=== PATIENT | male | born 1935 | race Caucasian/White ===

== ENCOUNTER 2020-02-05 04:39 | Observation (INO) | payer MEDICARE, OTHER ==
[~2020-02-05] VITALS: Ht 175.3 cm; Wt 99.0 kg
--- NOTE | 2020-02-05 05:17 | NUR ---
PT CAME INTO ED TODAY DUE TO ABDOMINAL PAIN. STATES HIS RIGHT UPPER QUADRANT IS HURTING FOR THE PAST WEEK, STATES HE CAME IN TODAY BECAUSE HE COULDNT SLEEP FROM THE PAIN. DENIES BURNING ON URINATION. STILL PASSING GAS AND HAVING BOWEL MOVEMENTS. PT RESTING ON GURNEY, SON AT BEDSIDE, GIVEN WARM BLANKETS FOR COMFORT. PLACED ON SPO2/BP MONITORING. UA SENT TO LAB, [facility].
[2020-02-05] MEDS ORDERED: MORPHINE SULFATE 4 MG/ML, 1ML IVPush PRN ×2 (05:30→07:30)
[2020-02-05] MEDS ORDERED: SODIUM CHLORIDE FLUSH 10ML SYR IVF ONE (05:30)
[2020-02-05] MEDS ORDERED: ONDANSETRON 2MG/ML, 2ML IVPush ONE (05:30)
[2020-02-05] MEDS ORDERED: ONDANSETRON 2MG/ML, 2ML ONE ×2 (05:41→13:07)
[2020-02-05] MEDS ORDERED: MORPHINE SULFATE 4 MG/ML, 1ML ONE (05:41)
[2020-02-05 05:50] LABS: MICROSCOPIC INDICATED
--- NOTE | 2020-02-05 06:17 | NUR ---
PT MEDICATED PER MAR FOR PAIN, NAD, VSS, WAITING FOR TEST RESULTS. WCTM. NO CHANGE IN CONDITION
[2020-02-05 06:37] LABS: MEAN CORPUSCULAR HGB CONC 33.4 g/dL (33.2-36.2); MEAN CORPUSCULAR VOLUME 89.8 fL (81-97); MEAN PLATELET VOLUME 8.4 fL (7.4-10.4); PLATELET COUNT 394 x10^3/uL (130-400); RED BLOOD COUNT 4.87 x10^6/uL (4.38-5.82); RED CELL DISTRIBUTION WIDTH 13.3 % (9.4-14.8)
[2020-02-05 06:52] LABS: ALBUMIN 2.8 g/dL (3.4-5.0); ANION GAP 6 mmol/L (5-15); CALCIUM 8.5 mg/dL (8.5-10.1); CHLORIDE 108 mmol/L (98-107)
--- NOTE | 2020-02-05 06:55 | NUR ---
REPORT TO RAMSES SLADE, PT CARE TRANSFERRED AT THIS TIME.
[2020-02-05 06:56] LABS: ALANINE AMINOTRANSFERASE 57 U/L (12-78); ALKALINE PHOSPHATASE 94 U/L (45-117); BILIRUBIN,TOTAL 0.9 mg/dL (0.2-1.0); CREATININE 0.63 mg/dL (0.7-1.3); TOTAL PROTEIN 7.1 g/dL (6.4-8.2)
[2020-02-05] MEDS ORDERED: D5%-0.45NACL+KCL 20MEQ 1,000 ML IV ONE (07:14)
--- NOTE | 2020-02-05 07:28 | NUR ---
PT IN HOSPITAL GOWN. ALL CLOTHING REMOVED IN PREP FOR OR. PT SON LEFT TO GET PT HOME MEDS SO MED REC CAN BE COMPLETED. PT RESTING CALMLY, SITTING UP IN BED. NO STATED NEEDS AT THIS TIME. WILL CONTINUE TO MONITOR.
[2020-02-05 07:29] LABS: BASOPHILS # (AUTO) 0.03 x10^3/uL (0-0.1); BASOPHILS % (AUTO) 0 % (0-1); EOSINOPHILS # (AUTO) 0.37 x10^3/uL (0-0.4); EOSINOPHILS % (AUTO) 3 % (1-7); LYMPHOCYTES # (AUTO) 1.14 x10^3/uL (1-3.4); LYMPHOCYTES % (AUTO) 9 % (22-44); MD SCAN; MONOCYTES # (AUTO) 1.74 x10^3/uL (0.2-0.8); MONOCYTES % (AUTO) 13 % (2-9); NEUTROPHILS # (AUTO) 9.97 x10^3/uL (1.8-6.8); NEUTROPHILS % (AUTO) 75 % (42-75)
[2020-02-05] MEDS ORDERED: ONDANSETRON 2MG/ML, 2ML IVPush PRN ×3 (07:30→16:00)
[2020-02-05] MEDS ORDERED: SODIUM CHLORIDE FLUSH 10ML SYR IVF PRN (07:30)
[2020-02-05] MEDS ORDERED: CEFOTETAN PMX 2GM/50ML 50 ML IV ONE (07:30)
[2020-02-05] MEDS ORDERED: LISI-170 PO (07:57)
[2020-02-05] MEDS ORDERED: ATOR40TA PO (07:57)
[2020-02-05] MEDS ORDERED: METF500T17 PO (07:57)
--- NOTE | 2020-02-05 08:11 | NUR ---
PT SON ABLE TO BRING IN HOME MED FOR PT. MEDS ENTERED FOR MED REC. PT RESTING CALMLY IN BED. CALL LIGHT WITHIN REACH. WILL CONTINUE TO MONITOR.
--- NOTE | 2020-02-05 08:51 | NUR ---
REPORT GIVEN TO CANELO SLADE
[2020-02-05 09:36] VITALS: BP 133/75
[2020-02-05] MEDS ORDERED: PROPOFOL 50 ML ONE (12:07)
[2020-02-05] MEDS ORDERED: FENTANYL PF 250 MCG/5ML ONE (12:07)
[2020-02-05] MEDS ORDERED: BUPIVACAINE/PF-EPI 0.5% 1:200K ONE (12:54)
[2020-02-05] MEDS ORDERED: SUCCINYLCHOLINE 20 MG/ML, 10ML ONE (13:07)
[2020-02-05] MEDS ORDERED: ROCURONIUM 10 MG/ML,10ML ONE (13:07)
[2020-02-05] MEDS ORDERED: DIAZEPAM 5 MG/ML, 2ML IVPush PRN (13:30)
[2020-02-05] MEDS ORDERED: EPHEDRINE 50 MG/ML, 1ML IM PRN (13:30)
[2020-02-05] MEDS ORDERED: PROMETHAZINE 25 MG/ML, 1ML IVPush PRN (13:30)
[2020-02-05] MEDS ORDERED: LABETALOL 5MG/ML, 20ML IV PRN (13:30)
[2020-02-05] MEDS ORDERED: EPHEDRINE 50 MG/ML, 1ML IVPush PRN (13:30)
[2020-02-05] MEDS ORDERED: HYDROmorphone 1 MG/ML, 1ML INJ IVPush PRN (13:30)
[2020-02-05] MEDS ORDERED: FENTANYL PF 100 MCG/2ML IV PRN (13:30)
[2020-02-05] MEDS ORDERED: OXYcodone 5 MG/5 ML ORAL.SOL UDC PO PRN (13:30)
[2020-02-05] MEDS ORDERED: DIPHENHYDRAMINE 50 MG/ML, 1ML IVPush PRN (13:30)
[2020-02-05] MEDS ORDERED: BUPIVACAINE/PF-EPI 0.5% 1:200K IM ONE (13:34)
[2020-02-05] MEDS ORDERED: OXYcodone 5 MG/5 ML ORAL.SOL UDC ONE (14:39)
[2020-02-05] MEDS ORDERED: FENTANYL PF 100 MCG/2ML ONE (14:39)
[2020-02-05] MEDS ORDERED: ALBUTEROL HFA 90 MCG/SPRAY ONE (14:47)
[2020-02-05] MEDS ORDERED: ALBUTEROL HFA 90 MCG/SPRAY INH PRN (15:00)
[2020-02-05 15:37] VITALS: BP 147/69
[2020-02-05] MEDS: INSULIN REGULAR, HUMAN 100 UNITS/ML, 3ML MEDIUM DOSE SS SQ-INSULIN SCH ×2 (16:00→21:12)
[2020-02-05] MEDS: IBUPROFEN 600 MG TABLET PO SCH ×2 (16:00→21:12)
[2020-02-05] MEDS: ACETAMINOPHEN 325 MG TABLET PO SCH (19:25)
[2020-02-05 19:31] VITALS: BP 127/71
[2020-02-05 23:29] VITALS: BP 109/69
[2020-02-06] MEDS: IBUPROFEN 600 MG TABLET PO SCH ×2 (02:48→10:11)
[2020-02-06] MEDS: ACETAMINOPHEN 325 MG TABLET PO SCH ×4 (02:49→14:23)
[2020-02-06 02:56] VITALS: BP 100/59
[2020-02-06] MEDS: INSULIN REGULAR, HUMAN 100 UNITS/ML, 3ML MEDIUM DOSE SS SQ-INSULIN SCH ×2 (07:00→11:00)
[2020-02-06 07:48] VITALS: BP 109/60
[2020-02-06] MEDS ORDERED: TRAM50TA2 PO (09:42)
[2020-02-06 11:40] VITALS: BP 97/61
[2020-02-06 13:14] VITALS: BP 108/61
[2020-02-06 14:29] VITALS: BP 96/55
== END 2020-02-06 15:00 | disposition home or self-care (01) ==
LOC: ED 05:18 → EDIP 07:37 → 4NE 09:30 → DCLOUNGE 02-06 14:49
PROVIDERS: ADMIT Colon & Rectal Surgery; ATTEND Colon & Rectal Surgery
DX: K81.9 Cholecystitis, unspecified (principal); Z20.828 Contact with and (suspected) exposure to other viral communicable diseases; E11.9 Type 2 diabetes mellitus without complications; Z87.891 Personal history of nicotine dependence; Z79.899 Other long term (current) drug therapy
CPT/HCPCS: 36415; 47562; 76700; 80053; 81001; 82962; 83690; 85025; 87086; 87635; 88304; 96361; 96365; 96375; 99284; G0378; J0330; J1815; J2270; J2405; J2704; J3010; J3480; J3490

== ENCOUNTER 2020-02-17 13:54 | Emergency (ER) | payer MEDICARE ==
[~2020-02-17] VITALS: Ht 175.3 cm; Wt 97.0 kg
[~2020-02-17 13:54] MED LIST: ATOR40TA PO; LISI-170 PO; METF500T17 PO; TRAM50TA2 PO
[2020-02-17 14:58] LABS: MEAN CORPUSCULAR HEMOGLOBIN 28.9 pg (27.5-34.5); MEAN CORPUSCULAR HGB CONC 32.3 g/dL (33.2-36.2); MEAN CORPUSCULAR VOLUME 89.6 fL (81-97); MEAN PLATELET VOLUME 8.1 fL (7.4-10.4); PLATELET COUNT 567 x10^3/uL (130-400); RED BLOOD COUNT 5.29 x10^6/uL (4.38-5.82); RED CELL DISTRIBUTION WIDTH 13.6 % (9.4-14.8)
[2020-02-17 15:06] LABS: ALANINE AMINOTRANSFERASE 60 U/L (12-78); ALBUMIN 3.2 g/dL (3.4-5.0); ANION GAP 7 mmol/L (5-15); CHLORIDE 111 mmol/L (98-107); CREATININE 0.82 mg/dL (0.7-1.3)
[2020-02-17 15:08] LABS: ALKALINE PHOSPHATASE 112 U/L (45-117); BILIRUBIN,TOTAL 0.5 mg/dL (0.2-1.0); TOTAL PROTEIN 7.7 g/dL (6.4-8.2)
[2020-02-17 15:17] LABS: MD YES
[2020-02-17 15:19] LABS: BAND#(MANUAL) 0.78 x10^3/uL; BANDS%(MANUAL) 5 % (0-7); EOS#(MANUAL) 0.16 x10^3/uL (0.0-0.4); EOS% (MANUAL) 1 % (1-7); LYMPH#(MANUAL) 2.34 x10^3/uL (1-3.4); LYMPHS% (MANUAL) 15 % (22-44); MONOS#(MANUAL) 1.09 x10^3/uL (0.3-2.7); MONOS% (MANUAL) 7 % (2-9); SEG#(MANUAL) 11.23 x10^3/uL (1.8-6.8); SEGS% (MANUAL) 72 % (42-75)
[2020-02-17 15:20] LABS: <PLATELET ESTIMATE> INCREASED; <PLT MORPHOLOGY> NORMAL PLT MORPH; <RBC MORPHOLOGY> NORMAL
--- NOTE | 2020-02-17 15:56 | NUR ---
[employer]: PT TO ROOM FROM LOBBY
--- NOTE | 2020-02-17 16:20 | NUR ---
First contact with pt. Pt c/o urine retention since 0300 last night. Pt reports only being able to void "just drops". Pt c/o bladder pain associated with this. Solomon cath inserted per order. Pt tolerated well. Pt reports relief of bladder pain after urine began draining. Clear yellow urine continues draining, 500mL at this time in collection bag.
--- NOTE | 2020-02-17 16:22 | NUR ---
Derrick GORDILLO at bedside to evaluate pt.
[2020-02-17 16:33] LABS: MICROSCOPIC INDICATED
[2020-02-17 17:09] VITALS: BP 133/70
--- NOTE | 2020-02-17 17:09 | NUR ---
Pt resting in bed talking with family member who is at bedside, NADN, denies needs.
--- NOTE | 2020-02-17 17:29 | NUR ---
Leg bag applied and pt educated about changing bag to large bag in the night. Pt verbalizes understanding.
== END 2020-02-17 17:33 | disposition home or self-care (01) ==
LOC: ED 16:46
DX: R33.9 Retention of urine, unspecified (principal); R10.30 Lower abdominal pain, unspecified; E11.9 Type 2 diabetes mellitus without complications
CPT/HCPCS: 36415; 51702; 80053; 81001; 85025; 99284

== ENCOUNTER → 2020-04-16 | Outpatient (CLI) | payer MEDICARE | END | disposition home or self-care (01) | LOC: CFH 10:43 | PROVIDERS: ATTEND Physician Assistant | DX: N50.89 Other specified disorders of the male genital organs (principal); N43.3 Hydrocele, unspecified; R23.4 Changes in skin texture; N45.1 Epididymitis | CPT/HCPCS: 76870; 93975 ==